=== PATIENT | male | born 1965 | race Caucasian/White ===

== ENCOUNTER 2020-03-16 16:58 | Observation (INO) ==
[2020-03-16] MEDS ORDERED: DIATRIZOATE MEGLU/DIATRIZO SOD 30 ML BOTTLE PO ONE ×2 (16:59→21:40)
--- NOTE | 2020-03-16 18:29 | Emergency Department Note ---
HPI General Chief complaint: Recheck/Abnormal Lab/Rx Stated complaint: Feeding tube came out Time Seen by Provider: 03/16/20 17:22 Source: family Mode of arrival: wheelchair Limitations: language barrier History of Present Illness HPI Narrative: Narrative: 54-year-old male comes in because his PEG tube accidentally got pulled out. This was approximately 1 hour prior to arrival. He has not been ill lately and is otherwise feeling okay. He has a tracheostomy tube and is unable to be understood fully but he is able to mouth words. He has a friend here who is helping him Related Data Home Medications Medication Instructions Recorded Confirmed albuterol sulfate 2.5 mg IH PRN PRN 03/09/19 06/02/19 hydrocodone-acetaminophen 1 tab PO Q6HP PRN 03/09/19 06/02/19 levothyroxine 25 mcg PO DAILY 03/09/19 06/02/19 methocarbamol 500 mg PO DAILY 03/09/19 06/02/19 Allergies Allergy/AdvReac Type Severity Reaction Status Date / Time No Known Drug Allergies Allergy Verified 03/16/20 17:04 Review of Systems ROS ROS Narrative: Narrative: Limitations: ROS unobtainable due to patients medical condition [facility] Narrative Patient History Narrative: Narrative: Medical/Surgical/Family History All Active Problems (Updated 03/16/20 @ 20:01 by Lauro De MD) Status post tracheostomy (Acute) PEG tube malfunction (Acute) Dysphagia (Acute) Odynophagia (Acute) S/P percutaneous endoscopic gastrostomy (PEG) tube placement (Acute) Encounter for percutaneous endoscopic gastrostomy (Acute) Spasm (Chronic) Elevated blood pressure reading (Chronic) History of malignant neoplasm of larynx (Chronic) Alcohol abuse (Chronic) Benign prostatic hyperplasia (Chronic) Medical History Acute pharyngitis (Resolved) Alcohol abuse (Chronic) Benign prostatic hyperplasia (Chronic) Elevated blood pressure reading (Chronic) 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 He seems to be in reasonably good spirits and not in significant pain. Tracheostomy site noted. Heart is regular rate and rhythm no murmur appreciated. Lungs lungs clear to auscultation bilaterally without wheezes rales rhonchi or respiratory distress. Abdomen is soft nontender nondistended. PEG tube site is mildly erythematous around it. I did try to replace the PEG tube with a Gillette catheter but was unable to get back into the tract into the stomach there is a small he does not appear to be from-more irritation or inflammation. No pedal edema General Limitations: language barrier Course Vital Signs Vital signs: Vital Signs Temperature 97.5 F 03/16/20 17:00 Pulse Rate 91 H 03/16/20 17:00 Respiratory Rate 20 03/16/20 17:00 Blood Pressure 90/64 03/16/20 17:00 Pulse Oximetry (%) 99 03/16/20 17:00 Temperature 97.5 F 03/16/20 17:00 Pulse Rate 121 H 03/16/20 19:56 Respiratory Rate 20 03/16/20 17:00 Blood Pressure 97/79 03/16/20 19:56 Pulse Oximetry (%) 100 03/16/20 19:56 [facility] MDM Narrative Medical decision making narrative: Narrative: I was unable to place a Gillette catheter to keep the tract open. I called general surgery, Dr. Curtis Dominguez. He attempted as well but this was unsuccessful. He felt that the patient's stomach had actually shrunk down and necrosed and that the previous was actually sitting in a subcutaneous/peritoneal space. He felt that this needed to be washed out and the PEG tube needed to be revised. He will admit the patient for this purpose and this will be accomplished tomorrow Discharge Plan Patient/Caregiver Discharge Instructions Pt seen by SPECIAL PROCEDURES TECHNOLOGIST/PA only: No Clinical Impression: Encounter for percutaneous endoscopic gastrostomy, PEG tube malfunction, Status post tracheostomy, Dysphagia Patient Disposition: Xfer As Inpt ([facility]) Condition: Fair Follow up with: Malou Mims, SPOOL [employer]ER [Primary Care Provider] - Prescriptions: No Action methocarbamol 500 MG tablet 500 mg PO DAILY RF: 0 albuterol sulfate 2.5 MG/3 ML solution for nebulization 2.5 mg IH PRN PRN (Reason: Dyspnea) RF: 0 hydrocodone-acetaminophen 1 TAB tablet 1 tab PO Q6HP PRN (Reason: Pain) RF: 0 levothyroxine 25 MCG tablet 25 mcg PO DAILY RF: 0
--- NOTE | 2020-03-16 18:44 | XRay Report ---
INDICATION: tube placement TECHNIQUE: Supine abdomen. COMPARISON: None FINDINGS:Left upper quadrant feeding tube was injected with Gastrografin and an overhead film was obtained. Feeding tube is extraluminal. There is intra-abdominal but extraluminal contrast material identified. IMPRESSION: Extraluminal placement of left upper quadrant feeding tube Interpreted and Authenticated by: Yosef Bravo 03/16/20
--- NOTE | 2020-03-16 19:14 | General Surg History&Physical ---
HPI History of Present Illness Patient information: Note initiated : 03/16/20 at 7:10 pm Service Date, if different from initiated Date: [] Patient: Gumaro Reed a 54 y/o M admitted on for Feeding tube came out. Chief Complaint: [] Chief complaint: dislodged PEG tube History of present illness: Mr. Reed is a 54 year old M was evaluated in the emergency room. The patient has a history of laryngeal cancer and is status post total laryngectomy with bilateral radical neck dissection. He was treated and has been followed by ENT and oncology. He has a PEG tube is in place at least since 2018. He's had 2 episodes of esophageal food bolus obstruction that was treated by Dr. Mims.patient states that his PEG tube was pulled out this morning and he was transferred to the emergency room where an attempt was made to place a Gillette catheter. The Gillette catheter could not be adequately placed and I was contacted. I was able to push the metal guide through his gastrostomy site full length however when the PEG tube was placed contrast showed that it was extraluminal. The patient is admitted to observation and I will make an attempt to place another PEG tube under anesthesia tomorrow. Review of Systems ROS unobtainable: other (permanent tracheostomy) PFSH PFSH All Active Problems (Updated 03/16/20 @ 19:27 by Lonnie Dominguez MD) Status post tracheostomy (Acute) PEG tube malfunction (Acute) Dysphagia (Acute) Odynophagia (Acute) S/P percutaneous endoscopic gastrostomy (PEG) tube placement (Acute) Encounter for percutaneous endoscopic gastrostomy (Acute) Spasm (Chronic) Elevated blood pressure reading (Chronic) History of malignant neoplasm of larynx (Chronic) Alcohol abuse (Chronic) Benign prostatic hyperplasia (Chronic) Medical History Acute pharyngitis (Resolved) Alcohol abuse (Chronic) Benign prostatic hyperplasia (Chronic) Elevated blood pressure reading (Chronic) 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) Surgical History History of laryngectomy (Chronic 08/17/15) History of surgery (Acute) 2016-right leg History of tracheostomy (Acute) Family History Mother Diabetes mellitus Sister Hypertensive disorder Social History smoking status: Former smoker alcohol intake frequency: 2+ drinks per day MEDS/ALLERGIES Home Medications and Allergies Home Medications Medication Instructions Recorded Confirmed Type albuterol sulfate 2.5 mg IH PRN PRN 03/09/19 06/02/19 History hydrocodone-acetaminophen 1 tab PO Q6HP PRN 03/09/19 06/02/19 History levothyroxine 25 mcg PO DAILY 03/09/19 06/02/19 History methocarbamol 500 mg PO DAILY 03/09/19 06/02/19 History Allergies Allergy/AdvReac Type Severity Reaction Status Date / Time No Known Drug Allergies Allergy Verified 03/16/20 17:04 Physical Examination Vital Signs Vital signs: Temp Pulse Resp BP Pulse Ox 97.5 F 91 H 20 90/64 99 03/16/20 17:00 03/16/20 17:00 03/16/20 17:00 03/16/20 17:00 03/16/20 17:00 General physical appearance General physical exam: no pain, cachectic and chronically ill Eyes Eye exam: PERRL, normal ocular movement and pale ENT ENT exam: decreased hearing and other (permanent tracheostomy) Head Head exam IM: Present atraumatic, normal inspection and normocephalic Neck Neck exam: other (tracheostomy and lower midline neck; extensive operative changes bilateral neck) Cardiovascular Cardiovascular exam IM: Present normal rate and rhythm, RRR, +S1 and +S2; Absent JVD Respiratory Respiratory exam: other (decreased breath sounds bilaterally much more decreased on right than on left) Abdomen Abdomen: Present soft and tender (tenderness around PEG tube site in left upper quadrant) Integumentary Integumentary: Present no rash, no growths and no abnormal pigmentation Neurologic Neurologic: Present normal coordination and normal sensation Musculoskeletal Musculoskeletal: Present other (extreme emaciation with musculoskeletal tissue loss) Psychiatric Psychiatric: Present oriented to time, oriented to person, oriented to place, speech is normal and memory intact Results Labs Labs: All other labs normal. A/P Assessment and plan (1) PEG tube malfunction: Status: Acute (2) Status post tracheostomy: Status: Acute (3) History of malignant neoplasm of larynx: Status: Chronic (4) Benign prostatic hyperplasia: Status: Chronic Qualifiers: Lower urinary tract symptom presence: symptoms absent Qualified Code(s): N40.0 - Benign prostatic hyperplasia without lower urinary tract symptoms; N40.0 - Benign prostatic hyperplasia without lower urinary tract symptoms (5) Alcohol abuse: Status: Chronic Narrative A/P Narrative: patient is admitted and will undergo upper endoscopy tomorrow. I f I'm able to get into the stomach I should be able to place another gastrostomy tube percutaneously. Patient is counseled for the procedure. Time Spent With Patient Time: Total time spent is greater than 50% in coordination of care (as documented) at patient's floor/unit and/or counseling patient:
[2020-03-16] MEDS ORDERED: ONDANSETRON 4 MG/2 ML VIAL IV PRN ×2 (19:29→20:20)
[2020-03-16] MEDS ORDERED: ACETAMINOPHEN 500 MG/50 ML BOTTLE IV PRN (19:34)
[2020-03-16] MEDS ORDERED: PROMETHAZINE 25 MG/ML VIAL IV PRN (19:34)
[2020-03-16] MEDS ORDERED: cefTRIAXone 1 GM in DEXTROSE 5% IN WATER 50 ML IV SCH (19:45)
[2020-03-16] MEDS ORDERED: DOCUSATE SODIUM 100 MG CAPSULE PO SCH (21:00)
[2020-03-16] MEDS ORDERED: SENNOSIDES 1 TABLET PO SCH (21:00)
[2020-03-16] MEDS ORDERED: 0.9 % SODIUM CHLORIDE 10 ML SYRINGE IV SCH (22:00)
[2020-03-16] MEDS: cefTRIAXone 1 GM VIAL IV SCH (22:15)
[2020-03-16] MEDS: HYDROmorphone 0.5 MG/0.5 ML SYRINGE IV PRN (22:15)
[2020-03-16] MEDS: 0.9 % SODIUM CHLORIDE 1,000 ML IV SCH (22:16)
[2020-03-16] MEDS: 0.9 % SODIUM CHLORIDE 10 ML SYRINGE IV SCH (22:16)
[2020-03-17 02:34] LABS: Appearance,Urine CLEAR (Clear); Bilirubin,Urine Negative (Negative); Color,Urine YELLOW; Culture Indicated,Urine No; Glucose,Urine (UA) Negative (Negative); Ketones,Urine 20 mg/dL (Negative); Leukocyte Esterase,Urine Negative /ug (Negative); Mucus,Urine MANY /hpf; Nitrate,Urine Negative (Negative); Protein,Urine Negative (Negative); Specific Gravity,Urine 1.043 (1.000-1.035); Urine Blood Negative (Negative); Urine RBC 1 /hpf (0-1); Urine Squamous Epithelial Cell < 1 /hpf (0-4); Urine WBC 1 /hpf (0-4); Urobilinogen,Urine Negative
[2020-03-17] MEDS: HYDROmorphone 0.5 MG/0.5 ML SYRINGE IV PRN ×4 (04:01→22:40)
--- NOTE | 2020-03-17 06:35 | XRay Report ---
INDICATION: SURGERY AT 0900 history of malignant pleural effusion. Left upper quadrant. Feeding tube was displaced TECHNIQUE: AP portable upright chest x-ray COMPARISON: Multiple previous chest x-rays including most recent examinations dated 02/25/2020, 02/24/2020, 02/17/2020. Previous chest CT scan dated 02/14/2020 FINDINGS: Right-sided chemotherapy infusion catheter with its tip in the superior vena cava. There is a right pleural drainage catheter Lungs:Mild left basilar infiltrate and small effusion. Appearance is slightly improved as compared with previous examination dated 02/25/2020. There is near complete opacification of the right hemithorax. There is a small lucency which may be pleural gas rather than aerated lung. Heart, vascular:No significant cardiomegaly. Pulmonary vascularity is normal. No pulmonary edema or pulmonary congestion Mediastinum, tripp:Mediastinum is not well-visualized due to opacification of the right hemithorax. No left-sided mediastinal abnormality or left hilar abnormality Pleura:Large right pleural effusion despite presence of a right pleural catheter Skeletal:Negative. IMPRESSION: 1. Near complete opacification right hemithorax as above. There is probable pleural gas rather than aerated lung 2. Mild left basilar infiltrate and small left effusion. Findings are improved since 02/25/2020 Interpreted and Authenticated by: Yosef Bravo 03/17/20
[2020-03-17 07:52] LABS: Basophils # (Auto) 0.03 K/mcL (0.00-0.20); Basophils % (Auto) 0.3 % (0.0-2.0); Eosinophils # (Auto) 0.03 K/mcL (0.00-0.70); Eosinophils % (Auto) 0.3 % (0.0-7.0); Hematocrit 31.8 % (41.0-55.0); Hemoglobin 9.7 g/dL (13.5-16.5); Lymphocytes # (Auto) 0.34 K/mcL (1.50-4.80); Lymphocytes % (Auto) 3.3 % (15.0-49.0); Mean Cell Volume 85.9 fL (80.0-100.0); Mean Corpuscular HGB Conc 30.5 g/dL (31.0-36.0); Mean Platelet Volume 8.7 fL (7.4-10.4); Monocytes # (Auto) 1.04 K/mcL (0.10-0.90); Monocytes % (Auto) 10.2 % (1.0-12.0); Neutrophils % (Auto) 85.9 % (38.0-78.0); Platelet Count 632 K/mcL (140-440); Red Cell Distribution Width 18.1 % (11.5-14.5); WBC 10.2 K/mcL (4.5-11.0)
[2020-03-17 08:27] LABS: ALT/SGPT 8 U/L (<40); AST/SGOT 14 U/L (<40); Albumin 2.8 gm/dL (3.2-5.2); Alkaline Phosphatase 60 U/L (39-117); Bilirubin,Direct < 0.2 mg/dL (<0.3); Bilirubin,Total 0.3 mg/dL (0.1-1.0); Blood Urea Nitrogen 23 mg/dL (6-20); Calcium 8.1 mg/dL (8.6-10.4); Carbon Dioxide 26 mmol/L (22-30); Chloride 101 mmol/L (96-108); Globulin 2.9 gm/dL (2.2-3.7); Glomerular Filtration Rate 120; Glucose 88 mg/dL (70-105); Lactate Dehydrogenase 289 U/L (135-225); Phosphorous 3.1 mg/dL (2.5-4.5); Triglycerides 123 mg/dL (<150); Uric Acid 3.1 mg/dL (2.5-8.0)
[2020-03-17] MEDS: cefTRIAXone 1 GM VIAL IV SCH (08:33)
[2020-03-17] MEDS: 0.9 % SODIUM CHLORIDE 1,000 ML IV SCH ×3 (08:38→20:40)
[2020-03-17] MEDS ORDERED: IPRATROPIUM/ALBUTEROL 3 ML AMPUL.NEB NEB PRN ×2 (09:00→11:28)
[2020-03-17] MEDS ORDERED: SCOPOLAMINE 1 PATCH PATCH TOPICAL PRN ×2 (09:00→11:28)
[2020-03-17] MEDS ORDERED: METOPROLOL TARTRATE 5 MG/5 ML VIAL IV ONE (09:20)
[2020-03-17] MEDS ORDERED: PROPOFOL 200 MG/20 ML VIAL IV ONE (09:20)
[2020-03-17] MEDS ORDERED: PHENYLEPHRINE 10 MG/ML VIAL ONE (09:20)
[2020-03-17] MEDS ORDERED: DEXAMETHASONE 10 MG/ML VIAL ONE (09:20)
[2020-03-17] MEDS ORDERED: KETAMINE 100 MG/ML ML ONE (09:20)
[2020-03-17] MEDS ORDERED: LIDOCAINE HCL/PF 100 MG/5 ML SYRINGE IV ONE (09:20)
[2020-03-17] MEDS ORDERED: GLYCOPYRROLATE 0.2 MG/ML VIAL IV ONE (09:20)
[2020-03-17] MEDS ORDERED: ONDANSETRON 4 MG/2 ML VIAL ONE (09:20)
[2020-03-17] MEDS ORDERED: fentaNYL 100 MCG/2 ML VIAL IV ONE (09:20)
[2020-03-17] MEDS ORDERED: MIDAZOLAM 2 MG/2 ML VIAL ONE (09:20)
--- NOTE | 2020-03-17 10:59 | XRay Report ---
INDICATION: Confirm mcgrath tube/as peg tube placement TECHNIQUE: Supine abdomen. COMPARISON: Previous examination dated 03/16/2020 FINDINGS:Feeding tube was replaced. Small water-soluble contrast dye injection demonstrates intraluminal location within the stomach. No extraluminal contrast extravasation. IMPRESSION: Feeding tube within the stomach Interpreted and Authenticated by: Yosef Bravo 03/17/20
--- NOTE | 2020-03-17 11:00 | Brief Operative Note ---
Brief Operative Note Date of procedure: 03/17/20 Pre-op diagnosis: dislodged PEG TUBE; PROXIMAL ESOPHAGEAL NEOPLASM Post-op diagnosis: other (DISLODGED PEG TUBE WITH SEPARATION OF STOMACH FROM PERITONEUM AND DISRUPTION OF GASTROCUTANEOUS FISTULA; PROXIMAL ESOPHAGEAL NEOPLASM WITH TOTAL OBSTRUCTION; ) Procedure: ESOPHAGOSCOPY WITH DILATION OF ESOPHAGEAL NEOPLASM;PERITONEOSCOPY WITH CANNULATION OF GASTRIC FISTULA AND GUIDEWIRE PLACEMENT OF 22F ALLEN CATHETER FEEDING TUBE Grafts/Implants: Yes (22F NASOGASTRIC TUBE) Anesthesia: MAC and other Findings: TOTAL OBSTRUCTION OF ESOPHAGUS AT 30CM WITH HEMORRHAGIC NEOPLASM CAUSING TOTAL OBSTRUCTION TOTAL SEPARATION OF STOMACH FROM PERITONEUM WITH VISIBLE OPENING IN EDGE OF STOMACH Complications: none Surgeon: Lonnie Dominguez Specimens Removed/Pathology: none sent Condition: stable Disposition: same day
[2020-03-17] MEDS ORDERED: ONDANSETRON 4 MG/2 ML VIAL IV PRN ×2 (11:28)
[2020-03-17] MEDS ORDERED: PROMETHAZINE 25 MG/ML VIAL IV PRN (11:28)
[2020-03-17] MEDS ORDERED: ACETAMINOPHEN 500 MG/50 ML BOTTLE IV PRN (11:28)
[2020-03-17] MEDS ORDERED: DIATRIZOATE MEGLU/DIATRIZO SOD 30 ML BOTTLE PO ONE ×2 (11:28)
[2020-03-17] MEDS: 0.9 % SODIUM CHLORIDE 10 ML SYRINGE IV SCH ×2 (13:25→22:39)
[2020-03-18] MEDS: 0.9 % SODIUM CHLORIDE 10 ML SYRINGE IV SCH ×4 (00:41→20:41)
[2020-03-18] MEDS: HYDROmorphone 0.5 MG/0.5 ML SYRINGE IV PRN ×5 (01:51→20:09)
[2020-03-18] MEDS: 0.9 % SODIUM CHLORIDE 1,000 ML IV SCH ×2 (05:28→15:27)
[2020-03-18] MEDS: cefTRIAXone 1 GM VIAL IV SCH (08:43)
--- NOTE | 2020-03-18 16:18 | General Surgery Progress Note ---
SUBJECTIVE Subjective Patient information: Note initiated : 03/18/20 at 4:15 pm Service Date, if different from initiated Date: [] Patient: Gumaro Reed 54 y/o M admitted on 03/16/20 for Feeding tube came out. Chief Complaint: [] Principal diagnosis: PEG tube malfunction Interval history: patient is doing well. He has been started on tube feedings 20 cc/h as tolerated well. He denies nausea. There is no evidence of leakage. Constitutional Vitals: Vital Signs Temp Pulse Resp BP Pulse Ox 97.4 F 80 18 100/72 96 03/18/20 12:00 03/18/20 12:00 03/18/20 12:00 03/18/20 12:00 03/18/20 12:00 Period Temp Pulse Resp BP Sys/Denny Pulse Ox Last 24 Hr 97.2 F-98.2 F 80-81 - 93-100/69-72 96-100 Intake and Output 03/18/20 03/18/20 03/18/20 05:59 13:59 21:59 Intake Total 998 Output Total 225 Balance -225 998 Intake & Output: Intake & Output 03/18/20 03/18/20 03/18/20 05:59 13:59 21:59 Intake Total 998 Output Total 225 Balance -225 998 Intake: IV 998 Sodium Chloride 0.9% 1,000 ml @ 998 100 mls/hr IV .Q10H [facility] Rx#: [id number] Oral Output: Void Amount 225 Other: Urine Color Dark Yellow # Bowel Movements GI/Abdominal GI/Abdominal exam: Present normal bowel sounds and soft; Absent distended and tenderness A/P Assessment and plan (1) PEG tube malfunction: Status: Acute (2) Status post tracheostomy: Status: Acute (3) Esophageal obstruction: Status: Acute Narrative A/P Narrative: patient is doing well and should be able to be discharged and transferred home tomorrow. Time Spent With Patient Time: Total time spent is greater than 50% in coordination of care (as documented) at patient's floor/unit and/or counseling patient:
[2020-03-19] MEDS: HYDROmorphone 0.5 MG/0.5 ML SYRINGE IV PRN ×5 (00:31→11:07)
[2020-03-19] MEDS: 0.9 % SODIUM CHLORIDE 1,000 ML IV SCH ×2 (01:35→11:28)
[2020-03-19] MEDS: 0.9 % SODIUM CHLORIDE 10 ML SYRINGE IV SCH ×2 (04:58→13:43)
[2020-03-19] MEDS: cefTRIAXone 1 GM VIAL IV SCH (08:26)
[2020-03-19] MEDS ORDERED: HEPARIN SODIUM,PORCINE/PF 500 UNIT/5 ML SYRINGE IV ONE (12:48)
--- NOTE | 2020-03-19 13:13 | Discharge Summary ---
Discharge Provider Provider Patient information: Note initiated : 03/19/20 at 1:12 pm Service Date, if different from initiated Date: [] Patient: Gumaro Reed 54 y/o M admitted on 03/16/20 for Feeding tube came out. Chief Complaint: [] Date of admission: 03/16/20 21:39 Discharge date: 03/19/20 Primary care physician: Malou Mims Admitting clinician: Lonnie Dominguez Consults: 03/19/20 08:51 Consult to Physician [CONS] Routine Comment: Consulting Provider: Lonnie Dominguez Reason For Exam: Physician to Consult Attending physician on discharge: Lonnie Dominguez Discharging clinician: Lonnie Dominguez COURSE Hospital Course Hospital course: 54-year-old male with history of permanent PEG tube that was dislodged at home. The patient has a history of esophageal stenosis and is status post tracheostomy with bilateral radical neck dissection. He has had progressive stenosis of his esophagus and was noted to have a major stenosis in May of this year. An attempt was made by ER staff to place a Allen catheter in the PEG tube site however this could not be done. I tried to place the PEG tube percutaneously through the old tract, but the stomach was from the abdominal wall and the tube was positioned in the peritoneal cavity. This was confirmed by contrast study. The patient was admitted and February I TRY TO DO A FORMAL REPLACEMENT OF THE PEG TUBE ENDOSCOPICALLY. 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 I TRIED TO DILATE THE NEOPLASM ENOUGH TO PLACE THE TUBE BUT I COULD NOT GAIN ACCESS TO THE STOMACH. I THEREFORE PLACED THE ENDOSCOPE THROUGH THE PEG TUBE SITE AND WAS ABLE TO MANEUVER IT INTO THE STOMACH OPENING. THE STOMACH WAS THEN CANNULATED WITH A GUIDEWIRE AND A 22 IRAQI ALLEN CATHETER WITH 30 CC BALLOON WAS THEN PLACED OVER THE GUIDEWIRE INTO THE STOMACH AND INFLATED. I WAS THEN ABLE TO PULL THE STOMACH UP TO THE ABDOMINAL WALL WITH THE BALLOON INTACT. THE PATIENT HAS HAD FEEDINGS THROUGH THE ALLEN CATHETER WITHOUT DIFFICULTY AND THERE IS NO EVIDENCE OF INTRAPERITONEAL LEAK OR LEAK AROUND THE CATHETER. HE IS STABLE FOR DISCHARGED HOME ON CONTINUOUS FEEDINGS VIA THE ALLEN CATHETER. 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 Endoscopic peritoneoscopy with cannulation of gastric fistula and placement of percutaneous feeding tube Pertinent studies/significant findings: contrast study of feeding tube 2 Complications: none Time Spent with Patient Time attestation: Total time spent providing and/or coordinating discharge services: Physical Examination Vital Signs Vital signs: Temp Pulse Resp BP Pulse Ox 97.6 F 98 H 16 98/70 95 03/19/20 11:56 03/18/20 23:43 03/19/20 11:56 03/19/20 11:56 03/19/20 11:56 General physical appearance General physical exam: no pain, cachectic and chronically ill Eyes Eye exam: PERRL, normal ocular movement and pale ENT ENT exam: decreased hearing and other (permanent tracheostomy) Head Head exam IM: Present atraumatic, normal inspection and normocephalic Cardiovascular Cardiovascular exam IM: Present normal rate and rhythm, RRR, +S1 and +S2; Absent JVD Abdomen Abdomen: Present soft and tender (tenderness around PEG tube site in left upper quadrant) Integumentary Integumentary: Present no rash, no growths and no abnormal pigmentation Neurologic Neurologic: Present normal coordination and normal sensation Musculoskeletal Musculoskeletal: Present other (extreme emaciation with musculoskeletal tissue loss) Psychiatric Psychiatric: Present oriented to time, oriented to person, oriented to place, speech is normal and memory intact Discharge Plan Patient/Caregiver Discharge Instructions Activity: increase activity as tolerated Diet: Full Liquid and NPO Instructions: Levothyroxine (By mouth), How to Use and Care for Your PEG Tube (DC), Upper Endoscopy (GEN) Activity Restrictions/Additional Instructions: This discharge packet is provided to you to help keep you informed about your ca re. We want to ensure you get everything you need when you go home. You will also be receiving a call from us in a few days to follow up with you and see how you are doing since your discharge. This gives us a chance to listen to any concerns you maybe experiencing since you were discharged or any additional needs you may have, as well as providing us feedback on your care experience. We strive to always provide excellent care and thank you for your feedback and for choosing [facility]. Prescriptions: No Action levothyroxine 25 MCG tablet 75 mcg PO DAILY RF: 0 Follow Up Plan Follow up with: Malou Mims ARNP [Primary Care Provider] - Lonnie Dominguez MD [Physician] - 04/02/20 9:30 am () Patient Disposition: Home, Self-Care Assessment: patient is terminal and is with hospice on comfort measures only Plan of Treatment: continued tube feeds as prior to admission Prognosis: Serious Rehab Potential: Undetermined I certify that the patient requires SNF services: No Overall status at discharge: patient is progressing back to baseline Discharge Orders: Discharge Order (Routine); Ordered 03/19/20 Ordered By: Lonnie Dominguez Pending Pending Pending: Resuscitation Status DNR/Comfort Measures Only Diet NPO Diet (NOW) Start ThuMar 19 104 Ceftriaxone Sodium (Rocephin) 1 gm IV DAILY MINO Last Admin: 03/19/20 08:26 Dose: 1 gm Documented by: Admin: 03/18/20 08:43 Dose: 1 gm Documented by: TANYA Hydromorphone HCl (Dilaudid) 0.5 mg IV Q2HP PRN; Protocol PRN Reason: Per Pain Protocol Last Admin: 03/19/20 11:07 Dose: 0.5 mg Documented by: Admin: 03/19/20 07:25 Dose: 0.5 mg Documented by: Admin: 03/19/20 04:58 Dose: 0.5 mg Documented by: Admin: 03/19/20 02:00 Dose: 0.5 mg Documented by: Admin: 03/19/20 00:31 Dose: 0.5 mg Documented by: Admin: 03/18/20 20:09 Dose: 0.5 mg Documented by: Admin: 03/18/20 18:08 Dose: 0.5 mg Documented by: Admin: 03/18/20 12:44 Dose: 0.5 mg Documented by: Admin: 03/18/20 04:42 Dose: 0.5 mg Documented by: Admin: 03/18/20 01:51 PDT Dose: 0.5 mg Documented by: Admin: 03/17/20 22:40 Dose: 0.5 mg Documented by: Admin: 03/17/20 19:13 Dose: 0.5 mg Documented by: Admin: 03/17/20 13:05 Dose: 0.5 mg Documented by: TANYA Sodium Chloride (Sodium Chloride 0.9%) 1,000 mls @ 100 mls/hr IV .Q10H [facility] Last Admin: 03/19/20 11:28 Dose: 100 mls/hr Documented by: Infusion: 03/19/20 11:28 Dose: 100 mls/hr Documented by: Admin: 03/19/20 01:35 Dose: 100 mls/hr Documented by: Infusion: 03/19/20 01:34 Dose: 0 mls/hr Documented by: Admin: 03/18/20 15:27 Dose: 100 mls/hr Documented by: Infusion: 03/18/20 15:27 Dose: 100 mls/hr Documented by: Admin: 03/18/20 05:28 Dose: 100 mls/hr Documented by: Infusion: 03/18/20 05:28 Dose: 0 mls/hr Documented by: Admin: 03/17/20 20:40 Dose: 100 mls/hr Documented by: Infusion: 03/17/20 20:40 Dose: 0 mls/hr Documented by: Admin: 03/17/20 11:45 Dose: 100 mls/hr Documented by: TANYA Sodium Chloride (Saline Flush) 10 ml IV Q8 [facility] Last Admin: 03/19/20 04:58 Dose: Not Given Documented by: Admin: 03/18/20 20:41 Dose: Not Given Documented by: Admin: 03/18/20 13:30 Dose: Not Given Documented by: Admin: 03/18/20 05:36 Dose: Not Given Documented by: Admin: 03/17/20 22:39 Dose: Not Given Documented by: Admin: 03/17/20 13:25 Dose: Not Given Documented by: TANYA Shift Summary 03/19/20 01:42 Shift Summary by Steffany Trujillo Self oral suctions with Marline, assist patient with deep trach suction via Yankauer X2. Communicates by writing on paper. Emergency suction catheter for tracheostomy at bedside. Medicated with Dilaudid 0.5mg IV (Q2HP) 20:08, 00:31 02:00 for 12/25 abdominal ache IV 20G 1" Port a cath accessed 03/16 21:30, in ED, running NS at 100ml/hour Turn Q2H with pillows, periodically patient pulls pillows out. Heelz up Voids per urinal 03/17 09:20 Dr. Dominguez, due to Esophageal Stricture, PEG tube displacement, performed EGD with Dilation and PEG Placement. Dr. Dominguez used a 22F Allen as feeding tube. Changed abdominal dressing X1 as of this writing. Serous fluid - did not detect Jevity on dressing. Tube Feeding Jevity 1.2 at 20ml/hr. 00:00 Residual 20ml. 03/17 MRSA negative 03/16 21:39 Admitted to [facility] OBS status with diagnosis: adynamic ileus Recent Hx: ED visit summary-triage report A 54 YO male presented to ED, on 03/16 at 17:00, with chief complaint: Recheck/Abnormal Lab/Rx. Description of symptoms: Pt accidently pulled out feeding tub about 1.5 hours ago. Pt unable to speak due to having a trach. ED admit vitals: Temp 97.5, HR 91, RR 20, BP 90/64, SPO2 99% on 3L O2 via trach mask, rates pain 02/24 FYI: per Dr. Dominguez's H&P...The patient has a history of laryngeal cancer and is status post total laryngectomy with bilateral radical neck dissection. He was treated and has been followed by ENT and oncology. He has a PEG tube is in place at least since 2018. Gumaro Reed [place] Male : 1965 [facility]# [id number] 03/18/20 16:51 - Shift Summary by Timbo Groves RN Acct Num: [id number] : 1965 Patient Age: 54 Pt A/O, Is now recieving tube feedings at 20ml/hr. Has a hx of laryngeal cancer, laryngectomy, chemotherapy, and radiotherapy. Receiving 1.5L of O@ via trach ma sk. Suctions self with yankeur. Up with SBA and Uses urinal at bedside. Has gauze and tegaderm on right rib. Mepiplex foam on back and sacral dressing. Communicates with pad and paper but also is able to verbalize. Receiving Dilaudid 0.5mg for abdominal pain PRN Q2H. All VSS. Initialized on 03/19/20 01:42 - END OF NOTE
--- NOTE | 2020-03-21 14:14 | Operative Note ---
DATE OF OPERATION: 03/17/2020 PREOPERATIVE DIAGNOSIS: Dislodged PEG tube with proximal esophageal neoplasm. POSTOPERATIVE DIAGNOSIS: Dislodged PEG tube with separation of stomach from peritoneum and disruption of the gastrocutaneous fistula, proximal esophageal neoplasm with total obstruction. PROCEDURE: 1. Esophagoscopy with dilation of the esophageal neoplasm. 2. Peritoneoscopy with cannulation of gastric fistula, and guidewire placement of a 22-Palestinian 30 mL Gillette catheter feeding tube. FINDINGS: 1. Total obstruction of the esophagus at 30 cm with hemorrhagic friable exophytic neoplasm causing total obstruction. 2. Total separation of the stomach from the peritoneum with visible opening at the edge of the stomach. INDICATIONS: The patient is a 54-year-old male with history of squamous cell carcinoma of the larynx who is status post bilateral radical neck with a laryngectomy and permanent stoma tracheostomy. He also has progressive obstruction of his proximal third of the esophagus. The patient presented with a dislodged PEG tube. An attempt was made by the ER staff to place a Gillette catheter, but the ER staff states that the catheter could not be placed successfully. I initially tried to place a new PEG tube, but it went intraperitoneally, suggesting that the connection between the stomach and the peritoneum was . An Isovue study was done and this showed that the PEG tube was placed intraperitoneally. DESCRIPTION OF PROCEDURE: The procedure was done with the patient under MAC anesthesia. The endoscope was introduced into the retropharynx and at 30 cm, a very large exophytic neoplasm was encountered. I tried to push the scope through without success. I chose a 789 CRE balloon and tried to push this into the stomach through the neoplasm. I could dilate it up to 9 mm. However, I could not get an opening wide enough to pass the scope. In order to prevent esophageal perforation, this was discontinued. Fluid was suctioned proximal to the neoplasm. Next, the opening of the previous PEG tube was approached. The area was prepped. It was finger dilated and the gastroscope was pushed through the opening in the abdominal wall. I was able to see the free peritoneal cavity and I was also able to see the opening in the stomach. The opening in the stomach was cannulated with the gastroscope and once that was in the stomach, a guidewire was placed. The scope was removed and a 22-Palestinian 30 mL Gillette catheter was placed over the guidewire and pushed into the stomach proper. Gastric fluid was aspirated. The balloon was insufflated and the wall of the stomach was pulled against the peritoneum. The catheter was sutured with two sutures of 2-0 Prolene to hold it intact. Dressing was placed. The patient tolerated the procedure well. He was awakened and then taken back to the day surgery recovery area. LCS:aaliyah Job ID: [id number] Doc ID: [id number] Lonnie Dominguez M.D.
== END 2020-03-19 14:45 | disposition home or self-care (01) ==
LOC: MEDSUR 16:58 → ED 16:58 → MEDSUR 21:39
PROVIDERS: ADMIT Family Medicine Adult Medicine; ATTEND Family Medicine Adult Medicine